=== PATIENT | male | born 1955 | race Caucasian/White ===

== ENCOUNTER 2021-06-18 13:09 | Inpatient (IN) | payer MEDICARE, OTHER ==
[~2021-06-18] VITALS: Ht 167.6 cm; Wt 49.9 kg
[2021-06-18] MEDS ORDERED: SODIUM CHLORIDE 0.9% 1,000 ML IV ONE (15:30)
[2021-06-18 15:52] LABS: BASOPHILS % 0.6 % (0.0-2.0); EOSINOPHILS % 0.8 % (0.0-5.0); HEMATOCRIT. 31.1 % (42.0-52.0); HEMOGLOBIN. 10.1 g/dL (14.0-18.0); LYMPHOCYTES % 19.7 % (20.0-50.0); MEAN CORPUSCULAR HEMOGLOBIN 30.2 pg (28.0-32.0); MEAN CORPUSCULAR VOLUME 92.8 fL (80.0-94.0); MEAN PLATELET VOLUME 10.5 fl (7.4-10.4); MONOCYTES % 9.6 % (2.0-8.0); NEUTROPHILS % 69.3 % (40.0-76.0); PLATELET 301 x1000/uL (130-400); RED BLOOD CELL COUNT 3.35 mill/uL (4.7-6.1); RED CELL DISTRIBUTION WIDTH 13.3 % (11.6-14.6)
[2021-06-18 15:57] LABS: CHLORIDE 107 mEq/L (98-107)
[2021-06-18 16:37] LABS: CLARITY URINE TURBID (CLEAR); COLOR URINE YELLOW (YELLOW); KETONES URINE NEGATIVE (NEGATIVE); LEUKOCYTE ESTERASE URINE 3+ (NEGATIVE); NITRITE URINE NEGATIVE (NEGATIVE); OCCULT BLOOD URINE 3+ (NEGATIVE); PROTEIN URINE 2+ (NEGATIVE); SPECIFIC GRAVITY URINE 1.018 (1.005-1.030); UROBILINOGEN URINE 0.2 E.U./dL (0.2-1.0)
[2021-06-18] MEDS ORDERED: CEFTRIAXONE 1 G PREMIX 50 ML IV ONE (18:00)
[2021-06-18 21:40] VITALS: BP 155/68
[2021-06-18] MEDS: ATORVASTATIN CALCIUM 20MG TABLET PO SCH (21:45)
[2021-06-18] MEDS: BLOOD SUGAR DIAGNOSTIC STRIP TEST SCH (21:45)
[2021-06-18 22:00] VITALS: BP 141/62
[2021-06-18] MEDS ORDERED: LEVOFLOXACIN 500MG PREMIX 100 ML IV SCH (22:00)
[2021-06-18] MEDS ORDERED: IPRATROPIUM/ALBUTEROL 0.5-3(2.5)MG/3ML NEB NEB PRN (22:00)
[2021-06-18] MEDS ORDERED: TRAMADOL 50MG TABLET PO PRN (22:00)
[2021-06-18] MEDS ORDERED: CLONIDINE 0.1MG TABLET PO PRN (22:00)
[2021-06-18] MEDS ORDERED: ACETAMINOPHEN 325MG TABLET PO PRN ×2 (22:00)
[2021-06-18] MEDS ORDERED: DOCUSATE SODIUM 100MG CAPSULE PO PRN (22:00)
[2021-06-18] MEDS ORDERED: ONDANSETRON HCL 4MG/2ML INJ IV PRN (22:00)
[2021-06-18] MEDS ORDERED: NA PHOS,M-B/NA PHOS,DI-BA ENEMA 118ML PR PRN (22:00)
[2021-06-18] MEDS ORDERED: GUAIFENESIN 200MG/10ML SUGAR FREE UDC PO PRN (22:00)
[2021-06-18] MEDS ORDERED: DEXTROSE 50% WATER 50ML SYRINGE IV PRN ×2 (22:00→22:45)
[2021-06-18] MEDS ORDERED: NITROGLYCERIN 0.4MG TABLET SL SL PRN (22:00)
[2021-06-18] MEDS: ENOXAPARIN 40MG/0.4ML SYR SUBCUT SCH (22:00)
[2021-06-18] MEDS ORDERED: MAGNESIUM/ALUMINUM HYDROXIDE/SIMETHICONE 30ML UDC PO PRN (22:00)
[2021-06-18] MEDS ORDERED: NALOXONE HCL 0.4MG/ML VIAL IV PRN (22:45)
[2021-06-18] MEDS: LISINOPRIL 10MG TABLET PO SCH (22:49)
[2021-06-18] MEDS: FAMOTIDINE 20MG TABLET PO SCH (22:50)
[2021-06-19] VITALS: BP 130/67
[2021-06-19] MEDS: INSULIN GLARGINE UD 100 UNITS/ML SYR SUBCUT SCH ×3 (00:20→22:57)
[2021-06-19 04:00] VITALS: BP 154/77
[2021-06-19 06:59] LABS: BASOPHILS % 0.9 % (0.0-2.0); EOSINOPHILS % 3.7 % (0.0-5.0); HEMOGLOBIN. 10.3 g/dL (14.0-18.0); LYMPHOCYTES % 17.2 % (20.0-50.0); MEAN CORPUSCULAR HEMOGLOBIN 30.5 pg (28.0-32.0); MONOCYTES % 13.6 % (2.0-8.0); NEUTROPHILS % 64.6 % (40.0-76.0); PLATELET 303 x1000/uL (130-400); RED BLOOD CELL COUNT 3.37 mill/uL (4.7-6.1); RED CELL DISTRIBUTION WIDTH 13.4 % (11.6-14.6)
[2021-06-19] MEDS: BLOOD SUGAR DIAGNOSTIC STRIP TEST SCH ×4 (07:06→21:02)
[2021-06-19] MEDS ORDERED: INSULIN LISPRO 100 UNITS/ML SUBCUT SCH ×2 (07:20→07:50)
[2021-06-19] MEDS ORDERED: BLOOD SUGAR DIAGNOSTIC STRIP TEST SCH (07:20)
[2021-06-19] MEDS: INSULIN LISPRO 100 UNITS/ML SUBCUT SCH ×3 (07:20→17:20)
[2021-06-19 07:24] LABS: CHLORIDE 108 mEq/L (98-107)
[2021-06-19 07:33] LABS: PHOSPHORUS 3.1 mg/dL (2.5-4.9)
[2021-06-19 07:35] LABS: FOLIC ACID (FOLATE) SERUM 14.5 ng/mL (>5.38)
[2021-06-19] MEDS: INSULIN LISPRO (LOW DOSE) 100 UNITS/ML SUBCUT SCH ×3 (07:47→17:20)
[2021-06-19 08:00] VITALS: BP 148/79
[2021-06-19] MEDS ORDERED: LISINOPRIL 20MG TABLET PO SCH (09:00)
[2021-06-19] MEDS: LISINOPRIL 10MG TABLET PO SCH (09:29)
[2021-06-19] MEDS: ASPIRIN 325MG EC TABLET PO SCH (09:29)
[2021-06-19] MEDS: FAMOTIDINE 20MG TABLET PO SCH ×2 (09:29→21:02)
[2021-06-19] MEDS: ZINC SULFATE 220 MG ( 50 ) CAPSULE PO SCH (09:29)
[2021-06-19] MEDS: ASCORBIC ACID 500 MG TABLET PO SCH ×2 (09:30→21:01)
[2021-06-19] MEDS: ENOXAPARIN 40MG/0.4ML SYR SUBCUT SCH (10:42)
[2021-06-19 12:00] VITALS: BP 102/58
[2021-06-19 16:00] VITALS: BP 100/56
[2021-06-19] MEDS: CEFTRIAXONE 1,000 MG in DEXTROSE 5% WATER 50 ML IV SCH (18:23)
[2021-06-19 20:00] VITALS: BP 120/66
[2021-06-19] MEDS: ZOLPIDEM TARTRATE 5MG TABLET PO PRN (21:01)
[2021-06-19] MEDS: ATORVASTATIN CALCIUM 20MG TABLET PO SCH (21:02)
[2021-06-20] VITALS: BP 121/74
[2021-06-20 04:00] VITALS: BP 124/71
[2021-06-20] MEDS: BLOOD SUGAR DIAGNOSTIC STRIP TEST SCH ×4 (06:32→21:40)
[2021-06-20] MEDS: INSULIN LISPRO (LOW DOSE) 100 UNITS/ML SUBCUT SCH ×3 (07:20→17:20)
[2021-06-20] MEDS: INSULIN LISPRO 100 UNITS/ML SUBCUT SCH ×3 (07:20→17:20)
[2021-06-20 08:00] VITALS: BP 136/80
[2021-06-20 08:42] LABS: CHLORIDE 109 mEq/L (98-107)
[2021-06-20 08:44] LABS: BASOPHILS % 0.8 % (0.0-2.0); EOSINOPHILS % 4.4 % (0.0-5.0); HEMATOCRIT. 33.5 % (42.0-52.0); HEMOGLOBIN. 11.3 g/dL (14.0-18.0); LYMPHOCYTES % 19.7 % (20.0-50.0); MEAN CORPUSCULAR HEMOGLOBIN 31.1 pg (28.0-32.0); MEAN CORPUSCULAR VOLUME 92.1 fL (80.0-94.0); MEAN PLATELET VOLUME 10.2 fl (7.4-10.4); MONOCYTES % 10.5 % (2.0-8.0); NEUTROPHILS % 64.6 % (40.0-76.0); PLATELET 322 x1000/uL (130-400); RED BLOOD CELL COUNT 3.64 mill/uL (4.7-6.1); RED CELL DISTRIBUTION WIDTH 13.4 % (11.6-14.6)
[2021-06-20 08:50] LABS: PHOSPHORUS 3.7 mg/dL (2.5-4.9)
[2021-06-20] MEDS ORDERED: ENOXAPARIN 40MG/0.4ML SYR SUBCUT SCH (09:00)
[2021-06-20] MEDS: ASCORBIC ACID 500 MG TABLET PO SCH ×2 (09:12→21:27)
[2021-06-20] MEDS: ZINC SULFATE 220 MG ( 50 ) CAPSULE PO SCH (09:12)
[2021-06-20] MEDS: FAMOTIDINE 20MG TABLET PO SCH (09:12)
[2021-06-20] MEDS: ASPIRIN 325MG EC TABLET PO SCH (09:13)
[2021-06-20] MEDS: INSULIN GLARGINE UD 100 UNITS/ML SYR SUBCUT SCH (10:44)
[2021-06-20] MEDS: LISINOPRIL 10MG TABLET PO SCH (10:49)
[2021-06-20] MEDS ORDERED: MAGNESIUM 2 G PREMIX 50 ML IV NR (11:00)
[2021-06-20 12:00] VITALS: BP 125/72
[2021-06-20] MEDS ORDERED: ENOXAPARIN 30MG/0.3ML SYR SUBCUT SCH (15:48)
[2021-06-20 16:00] VITALS: BP 132/80
[2021-06-20] MEDS: CEFTRIAXONE 1,000 MG in DEXTROSE 5% WATER 50 ML IV SCH (19:14)
[2021-06-20 20:46] VITALS: BP 105/72
[2021-06-20] MEDS: ATORVASTATIN CALCIUM 20MG TABLET PO SCH (21:27)
[2021-06-20] MEDS: ZOLPIDEM TARTRATE 5MG TABLET PO PRN (21:33)
[2021-06-20] MEDS ORDERED: INSULIN GLARGINE UD 100 UNITS/ML SYR SUBCUT SCH (22:00)
[2021-06-21] VITALS: BP 128/72
[2021-06-21 04:00] VITALS: BP 142/71
[2021-06-21 06:28] LABS: CHLORIDE 109 mEq/L (98-107)
[2021-06-21 06:31] LABS: BASOPHILS % 0.9 % (0.0-2.0); EOSINOPHILS % 2.7 % (0.0-5.0); HEMOGLOBIN. 10.8 g/dL (14.0-18.0); LYMPHOCYTES % 13.6 % (20.0-50.0); MEAN CORPUSCULAR HEMOGLOBIN 31.1 pg (28.0-32.0); MEAN CORPUSCULAR VOLUME 92.1 fL (80.0-94.0); MEAN PLATELET VOLUME 9.7 fl (7.4-10.4); MONOCYTES % 10.5 % (2.0-8.0); NEUTROPHILS % 72.3 % (40.0-76.0); PLATELET 324 x1000/uL (130-400); RED BLOOD CELL COUNT 3.48 mill/uL (4.7-6.1); RED CELL DISTRIBUTION WIDTH 13.6 % (11.6-14.6)
[2021-06-21 06:34] LABS: PHOSPHORUS 3.6 mg/dL (2.5-4.9)
[2021-06-21] MEDS: INSULIN LISPRO (LOW DOSE) 100 UNITS/ML SUBCUT SCH (07:20)
[2021-06-21] MEDS: BLOOD SUGAR DIAGNOSTIC STRIP TEST SCH ×4 (07:20→21:41)
[2021-06-21] MEDS: INSULIN LISPRO 100 UNITS/ML SUBCUT SCH ×3 (07:45→17:20)
[2021-06-21 08:00] VITALS: BP 129/72
[2021-06-21] MEDS: ZINC SULFATE 220 MG ( 50 ) CAPSULE PO SCH (08:55)
[2021-06-21] MEDS: ASCORBIC ACID 500 MG TABLET PO SCH ×2 (08:55→20:49)
[2021-06-21] MEDS: ASPIRIN 325MG EC TABLET PO SCH (08:55)
[2021-06-21] MEDS: LISINOPRIL 10MG TABLET PO SCH (08:56)
[2021-06-21] MEDS: ENOXAPARIN 30MG/0.3ML SYR SUBCUT SCH (09:00)
[2021-06-21] MEDS: INSULIN GLARGINE UD 100 UNITS/ML SYR SUBCUT SCH (10:17)
[2021-06-21 11:20] LABS: INR 1.1; PARTIAL THROMBOPLASTIN TIME 33.9 sec (23.4-31.0); PROTHROMBIN TIME 11.4 sec (9.6-11.0)
[2021-06-21] MEDS ORDERED: LIDOCAINE HCL 1% 20ML VIAL (Pyxis) INJ ONE (11:45)
[2021-06-21 16:00] VITALS: BP 118/58
[2021-06-21] MEDS: CEFTRIAXONE 1,000 MG in DEXTROSE 5% WATER 50 ML IV SCH (19:00)
[2021-06-21 20:00] VITALS: BP 140/59
[2021-06-21] MEDS: FAMOTIDINE 20MG TABLET PO SCH (20:49)
[2021-06-21] MEDS: ATORVASTATIN CALCIUM 20MG TABLET PO SCH (20:49)
[2021-06-21] MEDS: ZOLPIDEM TARTRATE 5MG TABLET PO PRN (21:55)
[2021-06-21] MEDS ORDERED: INSULIN GLARGINE UD 100 UNITS/ML SYR SUBCUT SCH (22:00)
[2021-06-22] VITALS (7 sets, daily range): BP systolic 118–141; BP diastolic 57–87
[2021-06-22] MEDS: BLOOD SUGAR DIAGNOSTIC STRIP TEST SCH ×4 (07:20→20:08)
[2021-06-22] MEDS: INSULIN LISPRO 100 UNITS/ML SUBCUT SCH ×3 (07:20→16:55)
[2021-06-22] MEDS: INSULIN LISPRO (LOW DOSE) 100 UNITS/ML SUBCUT SCH ×4 (07:20→16:52)
[2021-06-22 08:42] LABS: BASOPHILS % 0.8 % (0.0-2.0); EOSINOPHILS % 2.2 % (0.0-5.0); HEMOGLOBIN. 11.1 g/dL (14.0-18.0); MEAN CORPUSCULAR HEMOGLOBIN 30.8 pg (28.0-32.0); MEAN CORPUSCULAR VOLUME 91.5 fL (80.0-94.0); MEAN PLATELET VOLUME 9.2 fl (7.4-10.4); MONOCYTES % 7.5 % (2.0-8.0); NEUTROPHILS % 75.5 % (40.0-76.0); PLATELET 353 x1000/uL (130-400); RED BLOOD CELL COUNT 3.61 mill/uL (4.7-6.1); RED CELL DISTRIBUTION WIDTH 13.5 % (11.6-14.6)
[2021-06-22 09:04] LABS: CHLORIDE 111 mEq/L (98-107)
[2021-06-22] MEDS: ASPIRIN 325MG EC TABLET PO SCH (09:08)
[2021-06-22] MEDS: ASCORBIC ACID 500 MG TABLET PO SCH ×2 (09:08→20:08)
[2021-06-22] MEDS: ZINC SULFATE 220 MG ( 50 ) CAPSULE PO SCH (09:08)
[2021-06-22] MEDS: LISINOPRIL 10MG TABLET PO SCH (09:08)
[2021-06-22] MEDS: ENOXAPARIN 30MG/0.3ML SYR SUBCUT SCH (09:10)
[2021-06-22] MEDS: INSULIN GLARGINE UD 100 UNITS/ML SYR SUBCUT SCH (09:10)
[2021-06-22] MEDS ORDERED: INSULIN GLARGINE UD 100 UNITS/ML SYR SUBCUT SCH ×2 (10:15→22:00)
[2021-06-22] MEDS: CEFTRIAXONE 1,000 MG in DEXTROSE 5% WATER 50 ML IV SCH (17:03)
[2021-06-22] MEDS ORDERED: *PATIENT'S OWN MEDICATION STORAGE XX SCH (19:15)
[2021-06-22] MEDS: FAMOTIDINE 20MG TABLET PO SCH (20:08)
[2021-06-22] MEDS: ATORVASTATIN CALCIUM 20MG TABLET PO SCH (20:08)
[2021-06-22] MEDS: ZOLPIDEM TARTRATE 5MG TABLET PO PRN (20:18)
[2021-06-23] VITALS: BP 130/72
[2021-06-23 04:00] VITALS: BP 138/79
[2021-06-23] MEDS: BLOOD SUGAR DIAGNOSTIC STRIP TEST SCH (07:08)
[2021-06-23] MEDS: INSULIN LISPRO (LOW DOSE) 100 UNITS/ML SUBCUT SCH (07:20)
[2021-06-23] MEDS: INSULIN LISPRO 100 UNITS/ML SUBCUT SCH (07:20)
[2021-06-23 07:30] VITALS: BP 153/87
[2021-06-23 20:00] VITALS: BP 138/69
== END 2021-06-23 08:21 | disposition home health service (06) | DRG 638 ==
LOC: ER 13:09 → 6EST 19:28 → EDBEDREQ 19:30 → EDBEDREQTM 19:30 → ENRESERV 20:36
PROVIDERS: ADMIT Internal Medicine Nephrology; ATTEND Internal Medicine Nephrology
PROC: 02HV33Z Insertion of Infusion Device into Superior Vena Cava, Percutaneous Approach (ICD-10-PCS; principal; 2021-06-21)
PROC: B518ZZA Fluoroscopy of Superior Vena Cava, Guidance (ICD-10-PCS; 2021-06-21)
DX: E11.65 Type 2 diabetes mellitus with hyperglycemia (principal); N39.0 Urinary tract infection, site not specified; E44.1 Mild protein-calorie malnutrition; Z68.1 Body mass index [BMI] 19.9 or less, adult; D49.3 Neoplasm of unspecified behavior of breast; B96.4 Proteus (mirabilis) (morganii) as the cause of diseases classified elsewhere; Z20.822 Contact with and (suspected) exposure to COVID-19; K59.00 Constipation, unspecified; M17.0 Bilateral primary osteoarthritis of knee; D63.8 Anemia in other chronic diseases classified elsewhere; I10 Essential (primary) hypertension; E78.00 Pure hypercholesterolemia, unspecified; B35.1 Tinea unguium; Z87.440 Personal history of urinary (tract) infections; Z83.3 Family history of diabetes mellitus; Z91.19 Patient's noncompliance with other medical treatment and regimen
CPT/HCPCS: 36415; 36573; 80048; 80053; 81003; 82010; 82607; 82746; 82962; 83036; 83540; 83550; 83605; 83735; 83930; 84100; 84443; 85025; 87426; 93306; 93970; 99285; A6261; C1725; J0696; J1650; J1815; J1956; J3475; J3490; J7030; J7060